=== PATIENT | female | born 1980 | race Caucasian/White ===

== ENCOUNTER 2017-08-02 05:19 | Emergency (ER) | payer BC ==
[~2017-08-02] VITALS: Ht 162.6 cm; Wt 73.0 kg
[2017-08-02] MEDS ORDERED: RANI150T7 PO (05:23)
[2017-08-02] MEDS ORDERED: MONT10TA21 PO (05:23)
[2017-08-02] MEDS ORDERED: OMEP20 PO (05:23)
[2017-08-02] MEDS ORDERED: ACETAMINOPHEN 325 MG TABLET PO ONE (06:45)
[2017-08-02] MEDS ORDERED: BENZONATATE 100 MG CAPSULE PO ONE (06:45)
[2017-08-02] MEDS ORDERED: IBUPROFEN 600 MG TABLET PO ONE (07:00)
[2017-08-02 08:02] VITALS: BP 131/73
== END 2017-08-02 08:12 | disposition home or self-care (01) ==
LOC: EMS 05:22
DX: J11.1 Influenza due to unidentified influenza virus with other respiratory manifestations (principal); K21.9 Gastro-esophageal reflux disease without esophagitis
CPT/HCPCS: 71046; 99284